=== PATIENT | female | born 2000 | race Caucasian/White ===

== ENCOUNTER 2023-04-24 11:56 | Outpatient (CLI) | payer BC, OTHER, SELFPAY ==
--- NOTE | ~2023-04-24 | US_ITS ---
EXAMINATION: US OB <=14 wk fetus w TV DATE: 04/24/2023 12:37 INDICATION: First trimester with inconclusive viability TECHNIQUE: Real-time pelvic ultrasound utilizing both a transvaginal and transabdominal probe was pe rformed. The interpreting radiologist was not present for the study. COMPARISON: None. FINDINGS: The uterus measures 11.6 x 5.3 x 7.1 cm. There is an intrauterine gestational sac. A yolk sac and fe michael pole are identified. The crown rump length measures 5 mm, which correlates with an estimated gest ational age of 6 weeks and 2 days. heart motion is identified measuring 126 beats per minute (b pm) by M-mode Doppler. The right ovary measures 3.7 x 1.5 x 3.7 cm. The left ovary measures 2.8 x 2.6 x 2.0 cm. Vascular kendy w is identified in both ovaries on color Doppler. There is no free fluid in the pelvis. IMPRESSION: 1. Single living fetus with heart rate of 126 bpm. 2. Gestational age by ultrasound of 6 weeks 2 day(s) +/- 3 day(s) with ultrasound estimated date of delivery (GAYLA) of 12/16/2023. Reviewed, dictated and finalized at location A. IMPRESSION: 1. Single living fetus with heart rate of 126 bpm. 2. Gestational age by ultrasound of 6 weeks 2 day(s) +/- 3 day(s) with ultraso und estimated date of delivery (GAYLA) of 12/16/2023.
== END 2023-04-24 11:57 | disposition home or self-care (01) ==
LOC: ANHIMG 12:00
PROVIDERS: Visit Provider Obstetrics & Gynecology
DX: O36.80X0 Pregnancy with inconclusive fetal viability, not applicable or unspecified (principal)
CPT/HCPCS: 76801; 76817

== ENCOUNTER 2023-05-01 16:44 | Outpatient (CLI) | payer BC, OTHER, SELFPAY ==
[2023-05-01 18:15] LABS: Alanine Aminotransferase 98 U/L (6-35); Albumin Level 4.1 g/dL (3.5-5.1); Alkaline Phosphatase 70 U/L (38-126); Anion Gap 6 mmol/L (8-16); Aspartate Amino Transferase 47 U/L (14-36); Bilirubin,Total 0.4 mg/dL (0.2-1.3); Blood Urea Nitrogen 9 mg/dL (7-17); Calcium 9.8 mg/dL (8.4-10.2); Carbon Dioxide 29 mmol/L (22-30); Chloride 102 mmol/L (98-107); Estimated Glomerular Filt Rate > 60; Glucose 115 mg/dL (65-110); Potassium 3.6 mmol/L (3.4-5.0); Sodium 137 mmol/L (137-145)
[2023-05-01 18:29] LABS: Hemoglobin A1C 7.2 % (<5.7)
== END 2023-05-01 16:45 | disposition home or self-care (01) ==
LOC: ANHLAB 16:46
PROVIDERS: Visit Provider Obstetrics & Gynecology
DX: Z34.90 Encounter for supervision of normal pregnancy, unspecified, unspecified trimester (principal)
CPT/HCPCS: 36415; 80053; 83036; 84443

== ENCOUNTER 2023-05-08 20:15 | Emergency (ER) | payer BC, OTHER, SELFPAY ==
[2023-05-08 20:18] VITALS: BP 132/82; PULSE 108; RESP 20; TEMP 36.5; O2SAT 100
[2023-05-08 20:33] LABS: Basophils Percent Auto 0.2 % (0.2-1.2); Eosinophils Absolute Auto 0.1 K/mm3 (0-0.3); Eosinophils Percent Auto 0.5 % (0-4.4); Hematocrit 36.3 % (37.0-47.0); Hemoglobin 11.6 g/dL (12.0-15.0); Immature Granulocyte Absolute 0.06 K/mm3 (0.00-0.031); Immature Granulocyte Percent A 0.5 % (0-0.5); Lymphocytes Absolute Auto 2.92 K/mm3 (0.9-3.2); Lymphocytes Percent Auto 22.2 % (18.3-44.2); Mean Corpuscular Hemoglobin 26.9 pg (26-34); Monocytes Absolute Auto 0.6 K/mm3 (0.1-0.6); Monocytes Percent Auto 4.5 % (2.6-8.5); Neutrophils Absolute Auto 9.5 K/mm3 (1.3-6.7); Neutrophils Percent Auto 72.1 % (45.5-73.1); Platelet Count Result 285 k/mm3 (150-375); Red Blood Count 4.32 M/mm3 (4.2-5.4); Red Cell Distribution Width 12.8 % (11.5-14.5); White Blood Count 13.2 K/mm3 (4.5-10.0)
--- NOTE | 2023-05-08 23:07 | PC.NURSE ---
pt. called back to be taken to a room. RN stopped computer system technician from taking patient back due to an additional patient having a near syncopal episode. pt. asked to return to seat and wait to be called. pt. family member complains to staff we waited two and a half hours RN educated pt. and family member that the other patients status changed and he needs the room first.
--- NOTE | 2023-05-08 23:37 | ED.PREGNANCY ---
HPI - General Chief complaint: Vaginal Bleeding Stated complaint: vaginal bleeding-8 weeks Time Seen by Provider: 05/08/23 23:06 History of Present Illness HPI Narrative: This is a 22-year-old female, -2-0-0, last menstrual period 8 weeks 3 days ago with intrauterine confirmed by ultrasound, who presents to the emergency department with cramps and vaginal bleeding. The patient states for the past 2 days she has noted increased urinary frequency without dysuria and today began having suprapubic abdominal cramps, rated 7/10 associated with vaginal bleeding. She denies fevers, chills, abdominal pain, nausea or vomiting or recent trauma. Related Data Home Medications Medication Instructions Recorded Confirmed metformin 1,000 mg tablet 1,000 mg PO DAILY 05/01/23 05/08/23 Allergies Allergy/AdvReac Type Severity Reaction Status Date / Time Latex, Natural Rubber Allergy Intermediate Swelling Verified 05/01/23 15:39 adhesive tape AdvReac Intermediate Blister Verified 05/01/23 15:39 Review of Systems Review of Systems: CONSTITUTIONAL: Denies fever, chills, or sweats. CARDIOVASCULAR: Denies chest pain, palpitations, or edema. RESPIRATORY: Denies cough or dyspnea. GASTROINTESTINAL: Suprapubic abdominal pain denies nausea, vomiting, or diarrhea. GENITOURINARY: Vaginal bleeding denies dysuria or hematuria. SKIN: Denies rash or itching. MUSCULOSKELETAL: Denies back pain, joint pain, or myalgia. NEUROLOGIC: Denies headache, numbness, dizziness, or weakness. PSYCHIATRIC: Denies anxiety or depression. [facility] Past Medical History Medical History Anxiety History of miscarriage x 2 History of type 2 diabetes mellitus Surgical History Surgical History History of dilation and curettage x 2021 Family History Family History Father Alcoholism Depression Hypertension Mother Alcoholism Depression Grandparent Kidney malignancy Maternal Grandmother Brain cancer Maternal grandmother Thyroid cancer Maternal grandmother Cervical cancer Maternal grandmother Depression Social History Social History Smoking status: Never smoker Alcohol intake: current Substance use: never Lack of Transportation: No Lack of Food: Never True Current Housing: I Have Housing Concerned About Future Housing: No Difficulty Paying Gas/Electric Bills: No Difficulty Paying for Meds: No Currently Unemployed: No Education: High School Diploma/GED Difficulty w/ Childcare or Family Care: No Living arrangements: with family Occupation/Education: occupation Gender identity (if verbalized by the patient): Female Sexual Orientation (if Verbalized by the Patient): Straight or Heterosexual Spiritual care concerns: No Exam Narrative: GENERAL: Well-developed, well-nourished, and in no acute distress. HEAD: Normocephalic, atraumatic. EYES: PERRLA and EOMI. CHEST: Clear to auscultation. No respiratory distress. No wheezes rales or rhonchi HEART: Regular rate and rhythm. No murmur heard. Normal peripheral pulses. ABDOMEN: Soft, palpation in the suprapubic region without rebound or guarding, nondistended, normal active bowel sounds. No CVA tenderness to palpation (exam chaperoned by female RN Harleen): Small amount of bright red blood mixed with mucus noted in the vaginal vault. The cervical os appears closed with a small amount of blood-tinged mucus EXTREMITIES: Normal range of motion. No edema. NEURO: No focal deficits. Alert and oriented x3. Course Course Emergency Course: 23:40 - The patient is Rh negative. Will treat with RhoGAM. Serum beta-hCG 9984, consistent with . White blood cell count elevated to 13.2 with
[2023-05-08] MEDS: RHO(D) IMMUNE GLOBULIN 300 MCG/2 ML SYRINGE IM (23:48)
[2023-05-08 23:59] LABS: Appearance Urine Clear (Clear); Bilirubin Urine Negative (Negative); Blood Urine Negative (Negative); Color Urine Yellow (Yellow); Glucose Urine UA Negative (Negative); Ketones Urine Negative (Negative); Leukocyte Esterase Ur Negative LEU/UL (Negative); Nitrate Urine Negative (Negative); Protein Urine Negative (Negative); Specific Grav Ur 1.004 (1.001-1.035); Urobilinogen Urine 0.2 mg/dL (<2.0)
[2023-05-09 00:02] LABS: Add Urine Microscopic? YES
== END 2023-05-09 00:22 | disposition home or self-care (01) ==
PROVIDERS: Emergency Provider Preventive Medicine Aerospace Medicine
DX: O20.0 Threatened abortion (principal); Z3A.08 8 weeks gestation of pregnancy; O24.911 Unspecified diabetes mellitus in pregnancy, first trimester; Z79.84 Long term (current) use of oral hypoglycemic drugs
CPT/HCPCS: 36415; 81001; 84702; 85025; 85461; 86850; 86900; 86901; 90384; 96372; 99284; J2790

== ENCOUNTER 2023-05-09 12:11 | Outpatient (CLI) | payer BC, OTHER, SELFPAY ==
--- NOTE | ~2023-05-09 | US_ITS ---
EXAMINATION: US OB <=14 wk fetus w TV DATE: 05/09/2023 13:17 INDICATION: Hemorrhage during first trimester TECHNIQUE: Real-time pelvic ultrasound utilizing both a transvaginal and transabdominal probe was pe rformed. The interpreting radiologist was not present for the study. COMPARISON: 04/24/2023 FINDINGS: The uterus measures 13.0 x 7.3 x 6.1 cm. There is an intrauterine gestational sac. A yolk sac and fe michael pole are identified. The crown rump length measures 1.9 cm, which is concordant within 1 day of t he previously estimated gestational age of 8 weeks and 4 days. heart motion is identified measu ring 165 beats per minute (bpm) by M-mode Doppler. 8 x 8 x 8 mm anechoic subchorionic hematoma at the lower uterine segment along the caudal margin of the gestational sac. 4 mm nabothian cyst along the cervix. The right ovary measures 2.8 x 1.1 x 1.1 cm. The left ovary measures 3.2 x 2.1 x 2.4 cm. Vascular kendy w identified on color Doppler in both ovaries. There is no free fluid in the pelvis. IMPRESSION: 1. Single living fetus with heart rate of 165 bpm. 2. [place]-rump length of 1.9 cm which concordant with one day of previously estimated gestational age by ultrasound of 8 weeks 4 day(s) with ultrasound estimated date of delivery (GAYLA) of 12/15/2023. 3. Small subchorionic hematoma. Reviewed, dictated and finalized at location A. IMPRESSION: 1. Single living fetus with heart rate of 165 bpm. 2. [place]-rump length of 1.9 cm which concordant with one day of previously marlene mated gestational age by ultrasound of 8 weeks 4 day(s) with ultrasound estimat ed date of delivery (GAYLA) of 12/15/2023. 3. Small subchorionic hematoma.
== END 2023-05-09 12:12 | disposition home or self-care (01) ==
PROVIDERS: Visit Provider Obstetrics & Gynecology
DX: O20.9 Hemorrhage in early pregnancy, unspecified (principal); Z3A.08 8 weeks gestation of pregnancy
CPT/HCPCS: 76801; 76817

== ENCOUNTER 2023-05-16 16:58 | Outpatient (CLI) | payer BC, OTHER, SELFPAY ==
[2023-05-16 18:33] LABS: Free T4 Free Thyroxine 1.09 ng/mL (0.78-2.19)
[2023-05-16 18:48] LABS: Hepatitis B Surface Antigen Negative (Negative)
[2023-05-16 19:05] LABS: Hepatitis C Virus Antibody Negative (Negative)
== END 2023-05-16 16:59 | disposition home or self-care (01) ==
LOC: ANHLAB 17:00
PROVIDERS: Visit Provider Obstetrics & Gynecology
DX: R74.8 Abnormal levels of other serum enzymes (principal); R79.89 Other specified abnormal findings of blood chemistry
CPT/HCPCS: 36415; 84439; 86803; 87340

== ENCOUNTER 2023-06-04 12:41 | Outpatient (CLI) | payer BC, OTHER, SELFPAY ==
[2023-06-04 13:19] LABS: Basophils Percent Auto 0.3 % (0.2-1.2); Eosinophils Absolute Auto 0.1 K/mm3 (0-0.3); Eosinophils Percent Auto 0.6 % (0-4.4); Hematocrit 35.4 % (37.0-47.0); Hemoglobin 11.2 g/dL (12.0-15.0); Immature Granulocyte Absolute 0.04 K/mm3 (0.00-0.031); Immature Granulocyte Percent A 0.4 % (0-0.5); Lymphocytes Absolute Auto 2.16 K/mm3 (0.9-3.2); Lymphocytes Percent Auto 19.5 % (18.3-44.2); Mean Corpuscular HGB Conc 31.6 g/dl (32-36); Mean Corpuscular Hemoglobin 26.7 pg (26-34); Mean Corpuscular Volume 84.3 fl (80-100); Mean Platelet Volume 9.2 fl (7.4-10.4); Monocytes Absolute Auto 0.6 K/mm3 (0.1-0.6); Monocytes Percent Auto 5.7 % (2.6-8.5); Neutrophils Absolute Auto 8.1 K/mm3 (1.3-6.7); Neutrophils Percent Auto 73.5 % (45.5-73.1); Platelet Count Result 283 k/mm3 (150-375); Red Cell Distribution Width 13.4 % (11.5-14.5); White Blood Count 11.1 K/mm3 (4.5-10.0)
[2023-06-04 13:33] LABS: Alanine Aminotransferase 32 U/L (6-35); Albumin Level 3.9 g/dL (3.5-5.1); Alkaline Phosphatase 66 U/L (38-126); Anion Gap 6 mmol/L (8-16); Aspartate Amino Transferase 20 U/L (14-36); Bilirubin,Total 0.3 mg/dL (0.2-1.3); Blood Urea Nitrogen 9 mg/dL (7-17); Carbon Dioxide 24 mmol/L (22-30); Chloride 104 mmol/L (98-107); Estimated Glomerular Filt Rate > 60; Glucose 92 mg/dL (65-110); Potassium 3.8 mmol/L (3.4-5.0); Sodium 134 mmol/L (137-145)
[2023-06-04 13:34] LABS: Hemoglobin A1C 6.4 % (<5.7)
[2023-06-04 14:06] LABS: Vitamin D 25 Hydroxy 40.6 ng/mL
[2023-06-04 14:14] LABS: HIV 1/2 Ab P24 Ag Result Negative (Negative)
[2023-06-04 14:24] LABS: Hepatitis B Surface Antigen Negative (Negative)
[2023-06-04 14:36] LABS: Hepatitis C Virus Antibody Negative (Negative)
[2023-06-04 14:56] LABS: Rapid Plasma Reagin Non-Reactive (NonReactive)
[2023-06-07 14:37] LABS: Varicella IgG Antibody <135.00 Index (>=165.00)
[2023-06-08 02:58] LABS: Hematocrit 36.7 % (35.0-45.0); Hemoglobin 11.6 g/dL (11.7-15.5); MCH 27.6 pg (27.0-33.0); MCV 87.4 fL (80.0-100.0); RDW 13.2 % (11.0-15.0)
== END 2023-06-04 12:42 | disposition home or self-care (01) ==
PROVIDERS: Registered Nurse; Visit Provider Obstetrics & Gynecology
DX: O09.299 Supervision of pregnancy with other poor reproductive or obstetric history, unspecified trimester (principal); O24.011 Pre-existing type 1 diabetes mellitus, in pregnancy, first trimester
CPT/HCPCS: 36415; 80053; 82306; 83021; 83036; 84144; 84443; 84702; 85025; 86592; 86703; 86762; 86787; 86803; 86900; 86901; 87086; 87340; G0432

== ENCOUNTER 2023-07-23 09:33 | Outpatient (RCR) | payer BC, OTHER, SELFPAY ==
[2023-07-23 09:36] VITALS: BMI 36.8
[2023-07-23 13:47] VITALS: BMI 36.8
== END 2023-10-08 12:14 | disposition home or self-care (01) ==
LOC: ANHDMC 09:33
DX: O24.112 Pre-existing type 2 diabetes mellitus, in pregnancy, second trimester (principal); Z3A.00 Weeks of gestation of pregnancy not specified; Z71.3 Dietary counseling and surveillance
CPT/HCPCS: 97802

== ENCOUNTER 2023-07-23 11:01 | Outpatient (CLI) | payer BC, OTHER, SELFPAY ==
--- NOTE | 2023-07-23 11:09 | ECG_ITS ---
Measurements Intervals [place] Rate: 72 P: 28 WI: 144 QRS: 56 QRSD: 98 T: 30 QT: 345 QTc: 378 Interpretive Statements SINUS RHYTHM COMPARED TO ECG 06/02/2019 09:52:55 SINUS RHYTHM NOW PRESENT Electronically Signed On 07-23-2023 16:28:04 CDT by Ya Baez M.D.
== END 2023-07-23 11:02 | disposition home or self-care (01) ==
LOC: ANHCARD 11:02
PROVIDERS: Visit Provider Obstetrics & Gynecology
DX: Z86.39 Personal history of other endocrine, nutritional and metabolic disease (principal)
CPT/HCPCS: 93005

== ENCOUNTER 2023-08-12 08:15 | Outpatient (CLI) | payer BC, OTHER, SELFPAY ==
[2023-08-12 08:42] LABS: Collection Time Urine 24 HOURS
[2023-08-12 11:48] LABS: Total Volume 24 Hour Urine 5950 ml
[2023-08-12 11:51] LABS: Specific Gravity Ur 1.006
[2023-08-12 12:51] LABS: Patient Weight 205 Lbs; Total Protein Urine Random 16 mg/dL
[2023-08-12 13:48] LABS: Total Protein Urine 24 Hr 2 mg/24hr (0-149)
[2023-08-13 08:28] LABS: Estimated Glomerular Filt Rate > 60
[2023-08-13 22:34] LABS: Creatinine Clearance Urine 127.3 ml/min (75-125)
== END 2023-08-12 08:16 | disposition home or self-care (01) ==
LOC: ANHLAB 08:17
PROVIDERS: Visit Provider Registered Nurse
DX: Z86.39 Personal history of other endocrine, nutritional and metabolic disease (principal)
CPT/HCPCS: 36415; 81050; 82565; 82575; 84156

== ENCOUNTER 2023-09-06 18:16 | Emergency (ER) | payer BC, OTHER, SELFPAY ==
[2023-09-06] VITALS (22 sets, daily range): BP systolic 104–131; BP diastolic 53–76; PULSE 88–135; RESP 15–25; TEMP 36.6; O2SAT 96–100
--- NOTE | ~2023-09-06 | CT_ITS ---
EXAMINATION: CTA chest PE protocol DATE: 09/06/2023 21:24 INDICATION: Tachycardia, syncope. . Elevated d-dimer. TECHNIQUE: Computed tomography angiography (CTA) of the chest was performed with 100 mL Omnipaque-350 intravenous contrast timed to evaluate the pulmonary arteries. Coronal maximum intensity projection 3D-reconstructions were created by the technologist. Automated exposure control and iterative reconst ruction technique were employed. Exam dose: 847.71 mGy-cm total exam DLP. COMPARISON: 06/01/2019 portable AP chest FINDINGS: There is diagnostic contrast enhancement of the pulmonary arteries and no evidence of pulmo nary embolism. No thoracic aortic aneurysm or dissection. No hilar or mediastinal mass lesion or lymphadenopathy. Normal heart size. No pericardial or pleural effusion. No pulmonary infiltrate or consolidation or pulmonary mass lesion. Included skeletal structures are unremarkable. IMPRESSION: Negative; no evidence of pulmonary embolism Reviewed, dictated and finalized at Location [facility]. Reviewed, dictated and finalized at location A. AIN MENDER
--- NOTE | 2023-09-06 18:26 | ECG_ITS ---
Measurements Intervals [place] Rate: 96 P: 16 TN: 146 QRS: 32 QRSD: 97 T: 4 QT: 325 QTc: 411 Interpretive Statements SINUS RHYTHM MINIMAL Q WAVES- INFERIOR LEADS NONSPECIFIC T-WAVE ABNORMALITY- ANTEROLAT/INF LEADS BORDERLINE ECG COMPARED TO ECG 07/23/2023 11:15:18 T-WAVE ABNORMALITY NOW PRESENT Electronically Signed On 09-06-2023 19:54:15 SURGICAL PRODUCT SALES CONSULTANT by Christoph Ross D.O.
[2023-09-06 18:39] LABS: Basophils Percent Auto 0.2 % (0.2-1.2); Eosinophils Percent Auto 0.2 % (0-4.4); Hematocrit 32.9 % (37.0-47.0); Hemoglobin 10.1 g/dL (12.0-15.0); Immature Granulocyte Absolute 0.06 K/mm3 (0.00-0.031); Immature Granulocyte Percent A 0.4 % (0-0.5); Lymphocytes Absolute Auto 1.42 K/mm3 (0.9-3.2); Lymphocytes Percent Auto 9.9 % (18.3-44.2); Mean Corpuscular HGB Conc 30.7 g/dl (32-36); Mean Corpuscular Hemoglobin 26.7 pg (26-34); Mean Platelet Volume 8.9 fl (7.4-10.4); Monocytes Absolute Auto 0.7 K/mm3 (0.1-0.6); Neutrophils Percent Auto 84.3 % (45.5-73.1); Platelet Count Result 265 k/mm3 (150-375); Red Blood Count 3.78 M/mm3 (4.2-5.4); Red Cell Distribution Width 14.1 % (11.5-14.5); White Blood Count 14.3 K/mm3 (4.5-10.0)
[2023-09-06 18:49] LABS: Alanine Aminotransferase 31 U/L (6-35); Albumin Level 3.5 g/dL (3.5-5.1); Alkaline Phosphatase 70 U/L (38-126); Anion Gap 11 mmol/L (8-16); Aspartate Amino Transferase 19 U/L (14-36); Bilirubin,Total 0.3 mg/dL (0.2-1.3); Blood Urea Nitrogen 14 mg/dL (7-17); Calcium 8.9 mg/dL (8.4-10.2); Carbon Dioxide 20 mmol/L (22-30); Chloride 107 mmol/L (98-107); Estimated CRCL calculation 131 ml/min; Estimated Glomerular Filt Rate > 60; Glucose 90 mg/dL (65-110); Potassium 3.4 mmol/L (3.4-5.0); Sodium 138 mmol/L (137-145)
--- NOTE | 2023-09-06 19:30 | ED.SYNCOPE ---
HPI - Syncope General Chief Complaint: Syncope Stated Complaint: near syncope Time Seen by Provider: 09/06/23 19:20 Source: patient Mode of arrival: EMS Limitations: no limitations History of Present Illness HPI narrative: This is a 22-year-old female, 25 weeks , that presents to the emergency department for presyncopal episode today. Reports she had been shopping. She started to feel very lightheaded. She had to lie down so she did not pass out completely. She is a diabetic so took her blood sugar. It was in the 60s to 70s. She did eat something. She continued to feel lightheaded, nauseous and have a headache. She called EMS to be evaluated. Her OB is Dr. Walden. She is feeling baby move. No cramping or bleeding. Denies current chest pain or shortness of breath. Related Data Home Medications Medication Instructions Recorded Confirmed acetaminophen 300 mg-codeine 30 mg 1 tablet PO Q6H PRN 08/22/23 09/06/23 tablet azithromycin 250 mg tablet 250 mg PO DAILY 08/22/23 09/06/23 insulin detemir U-100 100 unit/mL 30 unit subcut QHS 08/22/23 09/06/23 (3 mL) subcutaneous pen (Levemir FlexPen) insulin lispro 100 unit/mL 1 sliding scale dose subcut 08/22/23 09/06/23 subcutaneous pen (Admelog SoloStar USEASDIRECTD U-100 Insulin lispro) vitamins no.121-iron 28 tablet PO DAILY 08/22/23 09/06/23 mg-folic acid 800 mcg tablet Allergies Allergy/AdvReac Type Severity Reaction Status Date / Time Latex, Natural Rubber Allergy Intermediate Swelling Verified 09/06/23 19:23 adhesive tape AdvReac Intermediate Blister Verified 09/06/23 19:23 Review of Systems Review of Systems: CONSTITUTIONAL: Denies fever CARDIOVASCULAR: Denies chest pain, or edema. RESPIRATORY: Denies dyspnea. GASTROINTESTINAL: Denies vomiting All systems reviewed & are unremarkable except as noted in HPI and below PMFSH Past Medical History Medical History Anxiety History of miscarriage x 2 History of type 2 diabetes mellitus Surgical History Surgical History History of dilation and curettage x 1 2021 Family History Family History Father Alcoholism Depression Hypertension Mother Alcoholism Depression Grandparent Kidney malignancy Maternal Grandmother Brain cancer Maternal grandmother Thyroid cancer Maternal grandmother Cervical cancer Maternal grandmother Depression Social History Social History Smoking status: Never smoker Alcohol intake: current Substance use: never Lack of Transportation: No Lack of Food: Never True Current Housing: I Have Housing Concerned About Future Housing: No Difficulty Paying Gas/Electric Bills: No Difficulty Paying for Meds: No Currently Unemployed: No Education: High School Diploma/GED Difficulty w/ Childcare or Family Care: No Living arrangements: with family Occupation/Education: occupation Gender identity (if verbalized by the patient): Female Sexual Orientation (if Verbalized by the Patient): Straight or Heterosexual Spiritual care concerns: No Exam Narrative: GENERAL: Well-appearing, well-nourished, and in no acute distress. HEAD: Normocephalic, atraumatic. EYES: PERRLA and EOMI. ENT: Nares clear, no rhinorrhea or epistaxis. Mucous membranes moist. Oropharynx without tonsillar hypertrophy exudate or other lesions. Bilateral TMs pearly braun non-bulging NECK: Supple. No adenopathy or masses. CHEST: Clear to auscultation. No respiratory distress. No wheezes rales or rhonchi HEART: Regular rate and rhythm. No murmur heard. Normal peripheral pulses. ABDOMEN: Gravid, nontender, nondistended, normal active bowel sounds. EXTREMITIES: Normal range of motion. No edema. SKIN: Warm, dry, no r
[2023-09-06] MEDS: SODIUM CHLORIDE 0.9% IV 1,000 ML 999 ML IV CONT (19:42)
[2023-09-06] MEDS: ACETAMINOPHEN 500 MG TABLET 1000 MG PO (19:42)
[2023-09-06 19:43] LABS: Appearance Urine Clear (Clear); Bilirubin Urine Negative (Negative); Blood Urine Negative (Negative); Color Urine Yellow (Yellow); Glucose Urine UA Negative (Negative); Ketones Urine Negative (Negative); Leukocyte Esterase Ur Negative LEU/UL (Negative); Nitrate Urine Negative (Negative); Protein Urine Negative (Negative); Specific Grav Ur 1.018 (1.001-1.035); Urobilinogen Urine 0.2 mg/dL (<2.0); pH Urine 5.5 (5.0-9.0)
[2023-09-06] MEDS: ONDANSETRON INJ 4 MG/2 ML VIAL IV PUSH (19:43)
[2023-09-06 19:46] LABS: Add Urine Microscopic? NO
[2023-09-06 20:34] LABS: Troponin I < 0.012 ng/mL (0.000-0.034)
[2023-09-06 20:34] LABS: Partial Thromboplastin Time 33.9 SECONDS (22.3-36.8); Prothrombin Time 13.7 Seconds (11.1-14.7)
[2023-09-06 20:44] LABS: D Dimer 1.51 ug/mL (<0.48)
--- NOTE | 2023-09-06 21:12 | PC.NURSE ---
Patient in ct at this time.
== END 2023-09-06 23:03 | disposition home or self-care (01) ==
PROVIDERS: Emergency Medicine; Emergency Provider Physician Assistant; PCP Obstetrics & Gynecology
DX: O26.892 Other specified pregnancy related conditions, second trimester (principal); R55 Syncope and collapse; O24.112 Pre-existing type 2 diabetes mellitus, in pregnancy, second trimester; Z3A.25 25 weeks gestation of pregnancy; Z79.4 Long term (current) use of insulin; R94.31 Abnormal electrocardiogram [ECG] [EKG]
CPT/HCPCS: 36415; 71275; 80053; 81003; 84484; 85025; 85380; 85610; 85730; 93005; 96361; 96374; 99284; 99285; A9270; J2405; J7030; Q9967

== ENCOUNTER 2023-09-22 03:41 | Observation (INO) | payer BC, OTHER, SELFPAY ==
[2023-09-22 03:55] VITALS: BP 129/69; PULSE 106
[2023-09-22 04:00] VITALS: BP 122/67; PULSE 104
[2023-09-22 04:15] VITALS: BP 123/60; PULSE 99
[2023-09-22 04:32] VITALS: BMI 39.5
--- NOTE | 2023-09-22 04:32 | OBADM ---
This patient, Zeenat Ovalle, admitted to the OB room [facility] Post [facility] for observation. Patient/family oriented to hospital policies and general routines including ID bracelet, bed and alarms, visiting hours, pain management, procedures, bathroom and other care routines, personal items, smoking policy, room service/diet, and visiting hours. Patient/Family are encouraged to report perceived risks to care and to ask questions if they do not understand what they are told or what they should do.
--- NOTE | 2023-09-23 08:34 | PM.OBTRLD ---
OB - Triage/Final Diagnosis Visit Information Date of evaluation: 09/22/23 Reason for evaluation: other (elevated blood pressure) Comments/Additional reasons for admission: I have assessed the risk for this patient, Zeenat Ovalle, and determined that she would benefit from observation care.
== END 2023-09-22 04:43 | disposition home or self-care (01) ==
PROVIDERS: Admitting Provider Student in an Organized Health Care Education/Training Program; Visit Provider Student in an Organized Health Care Education/Training Program
DX: O16.3 Unspecified maternal hypertension, third trimester (principal); Z3A.28 28 weeks gestation of pregnancy
CPT/HCPCS: G0378; G0379

== ENCOUNTER 2023-09-25 09:55 | Outpatient (RCR) | payer BC, OTHER, SELFPAY ==
[2023-09-25 10:49] LABS: Hematocrit 31.5 % (37.0-47.0); Hemoglobin 9.7 g/dL (12.0-15.0); Mean Corpuscular HGB Conc 30.8 g/dl (32-36); Mean Corpuscular Hemoglobin 26.7 pg (26-34); Mean Corpuscular Volume 86.8 fl (80-100); Mean Platelet Volume 8.9 fl (7.4-10.4); Platelet Count Result 258 k/mm3 (150-375); Red Blood Count 3.63 M/mm3 (4.2-5.4); Red Cell Distribution Width 14.6 % (11.5-14.5); White Blood Count 11.6 K/mm3 (4.5-10.0)
[2023-09-25] MEDS: RHO(D) IMMUNE GLOBULIN 300 MCG/2 ML SYRINGE IM (17:27)
== END 2023-12-24 23:59 | disposition home or self-care (01) ==
LOC: ANHLAB 09:55
PROVIDERS: Visit Provider Obstetrics & Gynecology
DX: Z29.13 Encounter for prophylactic Rho(D) immune globulin (principal); O36.0190 Maternal care for anti-D [Rh] antibodies, unspecified trimester, not applicable or unspecified; Z3A.00 Weeks of gestation of pregnancy not specified
CPT/HCPCS: 36415; 85027; 85461; 86850; 86900; 86901; 90384; 96372; J2790

== ENCOUNTER 2023-11-14 14:23 | Outpatient (CLI) | payer OTHER, BC, SELFPAY ==
[2023-11-14 15:04] LABS: Hematocrit 34.7 % (37.0-47.0); Hemoglobin 10.4 g/dL (12.0-15.0); Mean Corpuscular Hemoglobin 25.9 pg (26-34); Mean Corpuscular Volume 86.3 fl (80-100); Mean Platelet Volume 9.4 fl (7.4-10.4); Platelet Count Result 279 k/mm3 (150-375); Red Blood Count 4.02 M/mm3 (4.2-5.4); Red Cell Distribution Width 15.5 % (11.5-14.5); White Blood Count 9.8 K/mm3 (4.5-10.0)
[2023-11-14 15:41] LABS: D Dimer 2.18 ug/mL (<0.48)
[2023-11-14 15:46] LABS: Rapid Plasma Reagin Non-Reactive (NonReactive)
[2023-11-14 18:39] LABS: HIV 1/2 Ab P24 Ag Result Negative (Negative)
== END 2023-11-14 14:24 | disposition home or self-care (01) ==
PROVIDERS: Visit Provider Registered Nurse
DX: Z34.90 Encounter for supervision of normal pregnancy, unspecified, unspecified trimester (principal); D64.9 Anemia, unspecified; E11.9 Type 2 diabetes mellitus without complications
CPT/HCPCS: 36415; 85027; 85380; 86592; 86703; G0432

== ENCOUNTER 2023-11-20 14:51 | Outpatient (CLI) | payer OTHER, BC, SELFPAY ==
[2023-11-20 15:43] LABS: Basophils Percent Auto 0.3 % (0.2-1.2); Eosinophils Absolute Auto 0.1 K/mm3 (0-0.3); Eosinophils Percent Auto 0.5 % (0-4.4); Hematocrit 31.2 % (37.0-47.0); Hemoglobin 9.6 g/dL (12.0-15.0); Immature Granulocyte Absolute 0.06 K/mm3 (0.00-0.031); Immature Granulocyte Percent A 0.6 % (0-0.5); Lymphocytes Absolute Auto 1.41 K/mm3 (0.9-3.2); Lymphocytes Percent Auto 13.7 % (18.3-44.2); Mean Corpuscular HGB Conc 30.8 g/dl (32-36); Mean Corpuscular Hemoglobin 26.1 pg (26-34); Mean Corpuscular Volume 84.8 fl (80-100); Mean Platelet Volume 9.3 fl (7.4-10.4); Monocytes Absolute Auto 0.7 K/mm3 (0.1-0.6); Neutrophils Percent Auto 77.9 % (45.5-73.1); Platelet Count Result 265 k/mm3 (150-375); Red Blood Count 3.68 M/mm3 (4.2-5.4); Red Cell Distribution Width 15.1 % (11.5-14.5); White Blood Count 10.3 K/mm3 (4.5-10.0)
[2023-11-20 15:47] LABS: Appearance Urine Clear (Clear); Bacteria Urine None Seen /hpf; Bilirubin Urine Negative (Negative); Blood Urine 1+ (Negative); Color Urine Yellow (Yellow); Glucose Urine UA Negative (Negative); Ketones Urine Negative (Negative); Leukocyte Esterase Ur Negative LEU/UL (Negative); Nitrate Urine Negative (Negative); Non Pathogenic Casts 0-2; Protein Urine Negative (Negative); RBC Urine 0-2 /hpf (0-2); Specific Grav Ur 1.011 (1.001-1.035); Squamous Epithelial Cell Urine Few /hpf (Few); Urobilinogen Urine 0.2 mg/dL (<2.0); WBC Urine 0-5 /hpf
[2023-11-20 15:49] LABS: Add Urine Microscopic? YES
[2023-11-20 15:54] LABS: Alanine Aminotransferase 27 U/L (6-35); Albumin Level 2.9 g/dL (3.5-5.1); Alkaline Phosphatase 143 U/L (38-126); Anion Gap 4 mmol/L (8-16); Aspartate Amino Transferase 20 U/L (14-36); Bilirubin,Total 0.3 mg/dL (0.2-1.3); Blood Urea Nitrogen 12 mg/dL (7-17); Calcium 8.3 mg/dL (8.4-10.2); Carbon Dioxide 22 mmol/L (22-30); Chloride 109 mmol/L (98-107); Estimated Glomerular Filt Rate > 60; Glucose 90 mg/dL (65-110); Potassium 3.7 mmol/L (3.4-5.0); Sodium 135 mmol/L (137-145)
[2023-11-20 15:56] VITALS: BP 125/71; PULSE 80; BMI 43.5
[2023-11-20 16:00] VITALS: BP 122/73; PULSE 84
[2023-11-20 16:04] LABS: Creatinine Urine 53.4 mg/dL; Total Protein Urine Random 10 mg/dL; Ur Ttl Prot Creatinine Ratio 0.19 mg/mg (0-0.20)
[2023-11-20 16:09] VITALS: BP 122/73; PULSE 84
[2023-11-20 16:15] VITALS: BP 127/74; PULSE 71
--- NOTE | 2023-11-20 16:24 | PC.NURSE ---
Dr. Walden informed of BP's, reactive NST, and lab results. Pt to complete 24 hr urine at home and increase FESO4 to twice per day.
[2023-11-20 16:30] VITALS: BP 129/72; PULSE 75
== END 2023-11-20 16:36 | disposition home or self-care (01) ==
LOC: ANHOBOP 15:02 → ANHOBPP 15:03
PROVIDERS: Visit Provider Obstetrics & Gynecology
DX: O13.9 Gestational [pregnancy-induced] hypertension without significant proteinuria, unspecified trimester (principal); Z3A.00 Weeks of gestation of pregnancy not specified
CPT/HCPCS: 36415; 59025; 80053; 81001; 82570; 84156; 84550; 85025; 99199

== ENCOUNTER 2023-12-03 09:38 | Outpatient (RCR) | payer OTHER, BC, SELFPAY ==
[2023-09-19 18:23] VITALS: BP 120/66; PULSE 102
[2023-11-30 17:43] VITALS: BP 115/77; PULSE 80
--- NOTE | ~2023-12-03 | US_ITS ---
EXAMINATION: US OB BPP wo non-stress DATE: 12/03/2023 11:04 INDICATION: Decreased movement during third trimester TECHNIQUE: Real-time pelvic ultrasound was performed. The interpreting radiologist was not present fo r the study. COMPARISON: None. FINDINGS: There is a single living fetus in vertex presentation. The placenta is anterior/fundal. heart r ate is 133 beats per minute (bpm). Biophysical profile performed by the technologist: breathing (30 sec sustained breathing in 30 minutes): 2 out of 2 movement (3 gross body movements in 30 minutes): 2 out of 2 tone (one episode of efvcdhr-csrdjxqpi-rmobryx limb movement): 2 out of 2 Amniotic fluid pocket (2 cm): 2 out of 2 Total score: 8 out of 8 IMPRESSION: 1. Single living fetus in vertex presentation. 2. Biophysical profile 8 out of 8. Reviewed, dictated and finalized at location L. [employer] GO ROUND ATTENDANT
[2023-12-03 10:30] VITALS: BP 117/75; PULSE 79
== END 2023-12-18 23:59 | disposition home or self-care (01) ==
LOC: ANHOBOP 09:38
PROVIDERS: Visit Provider Obstetrics & Gynecology
DX: O36.8120 Decreased fetal movements, second trimester, not applicable or unspecified (principal); Z3A.27 27 weeks gestation of pregnancy; O36.8130 Decreased fetal movements, third trimester, not applicable or unspecified; Z3A.37 37 weeks gestation of pregnancy; Z3A.38 38 weeks gestation of pregnancy
CPT/HCPCS: 59025; 76819

== ENCOUNTER 2023-12-05 11:21 | Outpatient (NON) | payer OTHER, BC, SELFPAY ==
[2023-12-05 11:25] VITALS: BMI 43.7
[2023-12-05 12:34] LABS: Collection Time Urine 24 HOURS
[2023-12-05 12:41] LABS: Creatinine Urine 75.8 mg/dL; Patient Weight 239 Lbs; Total Protein Urine Random 13 mg/dL
[2023-12-05 12:49] LABS: Total Protein Urine 24 Hr 273 mg/24hr (28-141); Total Volume 24 Hour Urine 2100 ml
[2023-12-06 12:27] LABS: Creatinine Clearance Urine 116.3 ml/min (75-125); Serum Creat 0.8
== END 2023-12-05 11:22 | disposition home or self-care (01) ==
LOC: ANHOBOP 11:22
PROVIDERS: Visit Provider Obstetrics & Gynecology
DX: O13.9 Gestational [pregnancy-induced] hypertension without significant proteinuria, unspecified trimester (principal)
CPT/HCPCS: 81050; 82575; 84156

== ENCOUNTER 2023-12-06 11:30 | Outpatient (CLI) | payer OTHER, BC, SELFPAY ==
[2023-12-06 12:18] LABS: Alanine Aminotransferase 19 U/L (6-35); Alkaline Phosphatase 160 U/L (38-126); Anion Gap 2 mmol/L (8-16); Aspartate Amino Transferase 20 U/L (14-36); Bilirubin,Total 0.4 mg/dL (0.2-1.3); Blood Urea Nitrogen 11 mg/dL (7-17); Calcium 8.6 mg/dL (8.4-10.2); Carbon Dioxide 23 mmol/L (22-30); Chloride 108 mmol/L (98-107); Estimated Glomerular Filt Rate > 60; Glucose 160 mg/dL (65-110); Sodium 133 mmol/L (137-145)
== END 2023-12-06 12:00 | disposition home or self-care (01) ==
LOC: ANHOBOP 11:35 → ANHOBPP 11:36
PROVIDERS: Visit Provider Obstetrics & Gynecology
DX: O13.9 Gestational [pregnancy-induced] hypertension without significant proteinuria, unspecified trimester (principal); Z3A.00 Weeks of gestation of pregnancy not specified
CPT/HCPCS: 36415; 80053; 99199

== ENCOUNTER 2023-12-08 18:47 | Inpatient (IN) | payer OTHER, BC, SELFPAY ==
[2023-12-08] VITALS (17 sets, daily range): BP systolic 111–135; BP diastolic 59–87; PULSE 77–109; TEMP 36.9–37.2; BMI 44.3
--- NOTE | 2023-12-08 18:47 | LDADM ---
This patient, Zeenat Ovalle, was admitted to Labor/Delivery/Recovery 104 on 12/08/23 at 18:47. Plans for labor, pain management and were discussed with patient. Patient/family oriented to hospital policies and general routines including ID bracelet, bed and alarms, visiting hours, pain management, procedures, bathroom and other care routines, personal items, smoking policy, room service/diet and guest tray routines, security routines, and visiting hours. Patient/Family are encouraged to report perceived risks to care and to ask questions if they do not understand what they are told or what they should do. See OBIX for further documentation.
[2023-12-08 19:28] LABS: Basophils Percent Auto 0.2 % (0.2-1.2); Eosinophils Absolute Auto 0.1 K/mm3 (0-0.3); Eosinophils Percent Auto 0.6 % (0-4.4); Hematocrit 32.3 % (37.0-47.0); Hemoglobin 9.9 g/dL (12.0-15.0); Immature Granulocyte Absolute 0.05 K/mm3 (0.00-0.031); Immature Granulocyte Percent A 0.5 % (0-0.5); Lymphocytes Absolute Auto 1.54 K/mm3 (0.9-3.2); Mean Corpuscular HGB Conc 30.7 g/dl (32-36); Mean Corpuscular Hemoglobin 26.1 pg (26-34); Mean Platelet Volume 9.9 fl (7.4-10.4); Monocytes Absolute Auto 0.8 K/mm3 (0.1-0.6); Neutrophils Absolute Auto 8.5 K/mm3 (1.3-6.7); Neutrophils Percent Auto 77.7 % (45.5-73.1); Platelet Count Result 276 k/mm3 (150-375); Red Cell Distribution Width 15.5 % (11.5-14.5)
[2023-12-08 19:41] LABS: Alanine Aminotransferase 19 U/L (6-35); Albumin Level 3.2 g/dL (3.5-5.1); Alkaline Phosphatase 168 U/L (38-126); Anion Gap 4 mmol/L (8-16); Aspartate Amino Transferase 21 U/L (14-36); Bilirubin,Total 0.3 mg/dL (0.2-1.3); Blood Urea Nitrogen 11 mg/dL (7-17); Calcium 8.3 mg/dL (8.4-10.2); Carbon Dioxide 20 mmol/L (22-30); Chloride 110 mmol/L (98-107); Estimated CRCL calculation 98 ml/min; Estimated Glomerular Filt Rate > 60; Glucose 153 mg/dL (65-110); Potassium 3.8 mmol/L (3.4-5.0); Sodium 134 mmol/L (137-145)
[2023-12-08] MEDS: INSULIN HUMAN REGULAR (*BKC) 100 UNITS/ML SUB-Q (20:14)
[2023-12-08] MEDS: DINOPROSTONE 10 MG VAG INSERT VAGINAL (21:09)
--- NOTE | 2023-12-08 21:54 | PM.IMHP ---
H&P: HPI History of Present Illness Date/Time: 12/08/23 21:54 Chief Complaint: Medical induction of labor Narrative: [id number] at 39 weeks admitted for [facility] for gestational diabetes, insulin controlled. PNC also significant for history of depression. She has been seeing a ACTIVATED SLUDGE ATTENDANT psychiatry and stable on Zoloft. She has had presyncopal episodes and has been evaluated by cardiology. She had an isolated elevated blood pressure. No headaches scotomata or RUQ pain. She had an isolated mild polyhydramnios. Review of Systems Review of Systems: All systems reviewed & are unremarkable except as noted in HPI and below Constitutional: Constitutional: Reports no additional constitutional complaints and Denies headache(s) Eyes: Eyes: Denies spots in vision ENT: Reports system reviewed and no additional complaints, except as documented and Denies headache(s) Cardiovascular: Cardiovascular: Denies chest pain and Denies dyspnea Respiratory: Respiratory: Denies dyspnea Gastrointestinal: Gastrointestinal: Reports no additional gastrointestinal complaints Genitourinary: Genitourinary: Reports amenorrhea Musculoskeletal: Musculoskeletal: Reports no additional musculoskeletal complaints Integumentary/Breasts: Skin/Breast: Denies breast mass and Denies rash Neurologic: Denies headache(s) Psychiatric: Psychiatric: Reports no additional psychiatric complaints [facility] Past Medical History Medical History Anxiety Anxiety and depression Gestational diabetes History of miscarriage x 2 History of type 2 diabetes mellitus Morbid obesity Type 2 diabetes mellitus during Surgical History Surgical History History of dilation and curettage x 2021 Family History Family History Father Alcoholism Depression Hypertension Mother Alcoholism Depression Grandparent Kidney malignancy Maternal Grandmother Brain cancer Maternal grandmother Thyroid cancer Maternal grandmother Cervical cancer Maternal grandmother Depression Social History Social History Smoking status: Former smoker Tobacco type: cigarettes Second hand tobacco smoke exposure: No Alcohol intake: current Substance use: never Do You Feel Safe in your Home?: Yes Lack of Transportation: No Lack of Food: Never True Current Housing: I Have Housing Concerned About Future Housing: No Difficulty Paying Gas/Electric Bills: No Difficulty Paying for Meds: No Currently Unemployed: No Education: High School Diploma/GED Difficulty w/ Childcare or Family Care: No Living arrangements: with family Occupation/Education: occupation Gender identity (if verbalized by the patient): Female Sexual Orientation (if Verbalized by the Patient): Straight or Heterosexual Spiritual care concerns: No Meds Home Medications and Allergies Home Medications Medication Instructions Recorded Confirmed Type insulin lispro 100 unit/mL 1 sliding scale dose subcut 08/22/23 12/08/23 History subcutaneous pen (Admelog SoloStar USEASDIRECTD U-100 Insulin lispro) vitamins no.121-iron 28 1 tablet PO DAILY 08/22/23 12/08/23 History mg-folic acid 800 mcg tablet ferrous sulfate 325 mg (65 mg 325 mg PO DAILY 09/25/23 12/08/23 History iron) tablet ondansetron 4 mg disintegrating 4 mg PO Q8H PRN Nausea And Vomiting 10/22/23 12/08/23 History tablet sertraline 50 mg tablet 50 mg PO DAILY 10/22/23 12/08/23 History aspirin 81 mg chewable tablet 81 mg PO DAILY 11/20/23 12/08/23 History insulin glargine 100 unit/mL (3 13 unit subcut 0800 11/20/23 12/08/23 History mL) subcutaneous pen (Lantus Solostar U-100 Insulin) insulin glargine 100 unit/mL (3 13 unit subcut HS 11/20/23 12/08/23 History mL)
[2023-12-08] MEDS: INSULIN GLARGINE (*BKC) 100 UNITS/ML 13 UNITS SUB-Q (21:55)
[2023-12-08 22:02] LABS: Glucose Point of Care 102 mg/dl (65-105)
[2023-12-09] VITALS (202 sets, daily range): BP systolic 69–156; BP diastolic 32–115; PULSE 65–198; RESP 15–20; TEMP 36–36.6; O2SAT 75–100
--- NOTE | 2023-12-09 02:41 | WPDANESEPP ---
Anes - Eval Pre Procedure Procedure: Labor epidural Date/Time: 12/09/23 02:41 Surgeon: Bakari Preop Diagnosis: Abdominal pain with contractions Pre Op Diagnosis: IOL Patient Data Age: 23 Gender: F Height: 1.57 m Weight: 110 kg Last Vital Signs Temp 98.9 F 12/08/23 23:20 Pulse 77 12/09/23 02:31 BP 117/69 12/09/23 02:31 O2 Del Method Room Air 12/08/23 19:13 Allergies Allergy/AdvReac Type Severity Reaction Status Date / Time Latex, Natural Rubber Allergy Intermediate Swelling Verified 12/03/23 08:43 adhesive tape AdvReac Intermediate Blister Verified 12/03/23 08:43 Home Medications Medication Instructions Recorded Confirmed Type insulin lispro 100 unit/mL 1 sliding scale dose subcut 08/22/23 12/08/23 History subcutaneous pen (Admelog SoloStar USEASDIRECTD U-100 Insulin lispro) vitamins no.121-iron 28 1 tablet PO DAILY 08/22/23 12/08/23 History mg-folic acid 800 mcg tablet ferrous sulfate 325 mg (65 mg 325 mg PO DAILY 09/25/23 12/08/23 History iron) tablet ondansetron 4 mg disintegrating 4 mg PO Q8H PRN Nausea And Vomiting 10/22/23 12/08/23 History tablet sertraline 50 mg tablet 50 mg PO DAILY 10/22/23 12/08/23 History aspirin 81 mg chewable tablet 81 mg PO DAILY 11/20/23 12/08/23 History insulin glargine 100 unit/mL (3 13 unit subcut 0800 11/20/23 12/08/23 History mL) subcutaneous pen (Lantus Solostar U-100 Insulin) insulin glargine 100 unit/mL (3 13 unit subcut HS 11/20/23 12/08/23 History mL) subcutaneous pen (Lantus Solostar U-100 Insulin) vitamin B complex 1 tablet PO DAILY 11/20/23 12/08/23 History Laboratory Tests 12/08/23 12/08/23 19:03 21:58 WBC 11.0 H K/mm3 (4.5-10.0) RBC 3.80 L M/mm3 (4.2-5.4) Hgb 9.9 L g/dL (12.0-15.0) Hct 32.3 L % (37.0-47.0) MCV 85.0 fl (80-100) MCH 26.1 pg (26-34) MCHC 30.7 L g/dl (32-36) RDW 15.5 H % (11.5-14.5) Plt Count 276 k/mm3 (150-375) MPV 9.9 fl (7.4-10.4) Immature Gran % (Auto) 0.5 % (0-0.5) Neut % (Auto) 77.7 H % (45.5-73.1) Lymph % (Auto) 14.0 L % (18.3-44.2) [place] % (Auto) 7.0 % (2.6-8.5) Eos % (Auto) 0.6 % (0-4.4) Baso % (Auto) 0.2 % (0.2-1.2) Lymph # (Auto) 1.54 K/mm3 (0.9-3.2) [place] # (Auto) 0.8 H K/mm3 (0.1-0.6) Eos # (Auto) 0.1 K/mm3 (0-0.3) Baso # (Auto) 0.0 K/mm3 (0.0-0.1) Abs Immat Gran (auto) 0.05 H K/mm3 (0.00-0.031) Absolute Neuts (auto) 8.5 H K/mm3 (1.3-6.7) Absolute Nucleated RBC 0.0 K/mm3 (0.0-0.012) Nucleated RBC % 0.0 % (0.0-0.2) Sodium 134 L mmol/L (137-145) Potassium 3.8 mmol/L (3.4-5.0) Chloride 110 H mmol/L (98-107) Carbon Dioxide 20 L mmol/L (22-30) Anion Gap 4 L mmol/L (8-16) BUN 11 mg/dL (7-17) Creatinine 0.90 mg/dL (0.7-1.0) Estim Creat Clear Calc 98 ml/min Estimated GFR > 60 (59 - ) Glucose 153 H mg/dL (65-110) POC Capillary Glucose 102 mg/dl (65-105) Calcium 8.3 L mg/dL (8.4-10.2) Total Bilirubin 0.3 mg/dL (0.2-1.3) AST 21 U/L (14-36) ALT 19 U/L (6-35) Alkaline Phosphatase 168 H U/L (38-126) Total Protein 6.0 L g/dL (6.3-8.2) Albumin 3.2 L g/dL (3.5-5.1) RPR Pending Blood Type O Negative Antibody Screen Positive Antibody Identification Inconclusive Antigen Identification TNP MCKENZIE, IgG Interpret Not Performed MCKENZIE, Poly Interpret Negative MCKENZIE, Complement Interp Not Performed : gestational age HCG: positive Patient hx anesthesia problems: none Family hx anesthesia problems: none Results Review: All pre-operative results and documents have been reviewed as part of the pre-operative evaluation. [facility] Past Medical Histo
[2023-12-09 07:02] LABS: Glucose Point of Care 86 mg/dl (65-105)
[2023-12-09 09:15] LABS: Glucose Point of Care 92 mg/dl (65-105)
[2023-12-09] MEDS: INSULIN GLARGINE (*BKC) 100 UNITS/ML 13 UNITS SUB-Q (09:22)
[2023-12-09] MEDS: INSULIN ASPART (*BKC) 100 UNITS/ML SUB-Q (09:23)
[2023-12-09] MEDS: OXYTOCIN 30 UNITS/NS 500 ML 30 UNITS/500 ML BAG 6 UNITS IV CONT (09:50)
[2023-12-09] MEDS: DEXTROSE 5%/LACTATED RINGERS 1,000 ML 125 ML IV CONT (09:50)
[2023-12-09 11:12] LABS: Glucose Point of Care 183 mg/dl (65-105)
[2023-12-09] MEDS: fentaNYL CITRATE INJ (*CRX) 100 MCG/2 ML VIAL 50 MCG IV PUSH (12:00)
[2023-12-09] MEDS: LACTATED RINGERS 1,000 ML 125 ML IV CONT ×2 (12:00→14:12)
[2023-12-09 12:06] LABS: Glucose Point of Care 168 mg/dl (65-105)
[2023-12-09] MEDS: INSULIN HUMAN REGULAR (*BKC) 100 UNITS in SODIUM CHLORIDE 0.9% IV 99 ML IV CONT (12:47)
[2023-12-09] MEDS: ONDANSETRON INJ 4 MG/2 ML VIAL IV PUSH ×2 (13:11→17:38)
[2023-12-09 14:07] LABS: Glucose Point of Care 133 mg/dl (65-105)
--- NOTE | 2023-12-09 14:14 | PC.NURSE ---
1410: SUMMER Hampton called OB to inform her of patient's recent blood glucose. Order to D/C [id number] and replace it with LR.
[2023-12-09 15:01] LABS: Glucose Point of Care 139 mg/dl (65-105)
[2023-12-09] MEDS: SERTRALINE HCL 50 MG TABLET PO (15:04)
[2023-12-09 15:32] LABS: Rapid Plasma Reagin Non-Reactive (NonReactive)
[2023-12-09 15:59] LABS: Glucose Point of Care 108 mg/dl (65-105)
[2023-12-09] MEDS: SODIUM CHLORIDE 0.9% IV 300 ML 600 ML I-UTERINE (16:19)
[2023-12-09 17:06] LABS: Glucose Point of Care 85 mg/dl (65-105)
[2023-12-09] MEDS: AZITHROMYCIN 500 MG/NS 250 ML 500 MG/250 ML BAG 250 MG IVPB (17:26)
[2023-12-09] MEDS: FAMOTIDINE 20 MG/2 ML VIAL IV PUSH (17:39)
[2023-12-09] MEDS: ceFAZolin 2 GM/D5W 50 ML 2 GM/50 ML BAG IVPB (17:45)
--- NOTE | 2023-12-09 17:47 | PM.OBPNVD ---
OB - PN: Subj Subjective Date/time seen: 12/09/23 1130 FHT 150 Cat 1, AROM thick mec, cervix 2/60/-2. OB - PN: Obj Data Labs 12/08/23 19:03 12/08/23 19:03 Labs: Laboratory Results - last 24 hr 12/08/23 12/08/23 12/09/23 19:03 21:58 06:55 WBC 11.0 H RBC 3.80 L Hgb 9.9 L Hct 32.3 L MCV 85.0 MCH 26.1 MCHC 30.7 L RDW 15.5 H Plt Count 276 MPV 9.9 Immature Gran % (Auto) 0.5 Neut % (Auto) 77.7 H Lymph % (Auto) 14.0 L [place] % (Auto) 7.0 Eos % (Auto) 0.6 Baso % (Auto) 0.2 Lymph # (Auto) 1.54 [place] # (Auto) 0.8 H Eos # (Auto) 0.1 Baso # (Auto) 0.0 Abs Immat Gran (auto) 0.05 H Absolute Neuts (auto) 8.5 H Absolute Nucleated RBC 0.0 Nucleated RBC % 0.0 Sodium 134 L Potassium 3.8 Chloride 110 H Carbon Dioxide 20 L Anion Gap 4 L BUN 11 Creatinine 0.90 Estim Creat Clear Calc 98 Estimated GFR > 60 Glucose 153 H POC Capillary Glucose 102 86 Calcium 8.3 L Total Bilirubin 0.3 AST 21 ALT 19 Alkaline Phosphatase 168 H Total Protein 6.0 L Albumin 3.2 L RPR Non-reactive Blood Type O Negative Antibody Screen Positive Antibody Identification Inconclusive Antigen Identification TNP MCKENZIE, IgG Interpret Not Performed MCKENZIE, Poly Interpret Negative MCKENZIE, Complement Interp Not Performed 12/09/23 12/09/23 12/09/23 09:10 11:01 12:04 WBC RBC Hgb Hct MCV MCH MCHC RDW Plt Count MPV Immature Gran % (Auto) Neut % (Auto) Lymph % (Auto) [place] % (Auto) Eos % (Auto) Baso % (Auto) Lymph # (Auto) [place] # (Auto) Eos # (Auto) Baso # (Auto) Abs Immat Gran (auto) Absolute Neuts (auto) Absolute Nucleated RBC Nucleated RBC % Sodium Potassium Chloride Carbon Dioxide Anion Gap BUN Creatinine Estim Creat Clear Calc Estimated GFR Glucose POC Capillary Glucose 92 183 H 168 H Calcium Total Bilirubin AST ALT Alkaline Phosphatase Total Protein Albumin RPR Blood Type Antibody Screen Antibody Identification Antigen Identification MCKENZIE, IgG Interpret MCKENZIE, Poly Interpret MCKENZIE, Complement Interp 12/09/23 12/09/23 12/09/23 14:02 14:57 15:56 WBC RBC Hgb Hct MCV MCH MCHC RDW Plt Count MPV Immature Gran % (Auto) Neut % (Auto) Lymph % (Auto) [place] % (Auto) Eos % (Auto) Baso % (Auto) Lymph # (Auto) [place] # (Auto) Eos # (Auto) Baso # (Auto) Abs Immat Gran (auto) Absolute Neuts (auto) Absolute Nucleated RBC Nucleated RBC % Sodium Potassium Chloride Carbon Dioxide Anion Gap BUN Creatinine Estim Creat Clear Calc Estimated GFR Glucose POC Capillary Glucose 133 H 139 H 108 H Calcium Total Bilirubin AST ALT Alkaline Phosphatase Total Protein Albumin RPR Blood Type Antibody Screen Antibody Identification Antigen Identification MCKENZIE, IgG Interpret MCKENZIE, Poly Interpret MCKENZIE, Complement Interp 12/09/23 17:02 WBC RBC Hgb Hct MCV MCH MCHC RDW Plt Count MPV Immature Gran % (Auto) Neut % (Auto) Lymph % (Auto) [place] % (Auto) Eos % (Auto) Baso % (Auto) Lymph # (Auto) [place] # (Auto) Eos # (Auto) Baso # (Auto) Abs Immat Gran (auto) Absolute Neuts (auto) Absolute Nucleated RBC Nucleated RBC % Sodium Potassium Chloride Carbon Dioxide Anion Gap BUN Creatinine Estim Creat Clear Calc Estimated GFR Glucose POC Capillary Glucose 85 Calcium Total Bilirubin AST ALT Alkaline Phosphatase Total Protein Albumin RPR Blood Type Antibody Screen Antibody Identification Antigen Identification MCKENZIE, IgG Interpret MCKENZIE, Poly Interpret MCKENZIE, Complement Interp OB - PN A/P Time Spent Wi
--- NOTE | 2023-12-09 17:48 | PM.OBPNLAB ---
Pain Control Date/time seen: 12/09/23 17:48 FHT 155, cat 2, repetitive late decels, pit off, did get amnioinfusion for repetitive mod variables, variables improved but continued to have mild decelerations,cervix unchanged, she was recommended for section, risk of continuing labor discussed,risk benefits of section discussed, she agrees with section.
--- NOTE | 2023-12-09 18:46 | W.PM.OBCSD ---
OB - Delivery Note Procedure Delivery date: 12/09/23 Pre-op diagnosis: Decelerations and Gestational Diabetes Post-op Diagnosis: Same Induction method: Per Cervidil Protocol Delivery augmentation: Rupture of Membranes and Pitocin Delivery monitor: External FHT, External Uterine and Internal Uterine Prior to decision for section, ACOG/SMFM labor guidelines were considered and discussed with the patient and staff. Decision made to proceed with the section.: Yes Procedure Performed: Primary Surgeon: Billy Walden MD Anesthesia type: Epidural Description of Procedure/Findings: Primary low transverse section, thick meconium, female . Specimen: Yes Estimated Blood Loss: 350 Drains: No Packing: No Pathology: Yes (Placenta and cord) Complications: No immediate complications Condition: Stable Disposition: Floor [place] Baby Date of : 12/09/23 Time of : 18:04 Weeks of gestation at delivery: 39 Infant gender: Female presentation: vertex position: Left Occiput Anterior Placenta delivery description: Manual Removal Narrative: She was admitted on evening of 12/08/23 for [facility] for insulin controlled gestational diabetes. She had cervidil placed. Cervidil was removed the morning of 12/09. Pitocin started. She had AROM at 1100 thick meconium. She initally had D5 IVF and then had two elevated BS and insulin drip started. IVF were switched to NS. She had an IUPC placed. She progressed to 5cm. She started having mod variable decelerations. Amnioinfusion started. Pitocin off. Moderate variables improved and then she started having repetitive late decelerations. She was recommended for section for intolerance to labor. [facility] Delivery Billing Delivery Delivery: Delivery Charge
--- NOTE | 2023-12-09 18:52 | W.PM.PROC2 ---
Procedure Note - Detailed Date of Procedure 12/09/23 Pre-op Diagnosis 1. intolerance to labor. 2. Gestational diabetes. Post-op Diagnosis Same Procedure Performed Primary low transverse section. Surgeon Billy Walden MD Anesthesia Epidural Indications Non reassuring tracing. Findings Female infant, thick meconium, normal uterus and fallopian tubes and ovaries. Description of Procedure After informed consent, risks and benefits of the procedure was discussed with the patient. The patient was taken to the operating room where she was placed in the dorsal lithotomy position with leftward tilt. After the prior placed epidural anesthesia was found to be adequate, she was then prepped and draped in the usual sterile fashion. A Pfannenstiel skin incision was made with a scalpel and carried through to the underlying layer of fascia. The fascia was then nicked in the midline, extending bilaterally. The fascia was dissected off the rectus muscles bluntly and sharply, superiorly and inferiorly. The rectus muscles were in the midline, and peritoneum was identified and entered bluntly. The pelvic organs were visualized. The bladder blade was then inserted. The vesicouterine peritoneum was identified and entered sharply with Metzenbaum scissors and extended bilaterally and then the bladder flap was created digitally. The low transverse uterine incision was then made with the scalpel and extended with bilateral index fingers in a crescent-shaped fashion. The head was delivered and the rest of the was delivered. The nose and mouth suctioned. The cord was clamped twice and cut. The was then handed off to the awaiting pediatric staff. The placenta was then delivered manually. The uterine cavity was sponge curetted. The uterus was then exteriorized. The uterine incision was then closed with 0 vicryl in a running locked fashion. A figure of eight of 0 vicryl at the right of incision was used for hemostasis. Hemostasis noted. A second layer of 0 vicryl was used in an locking fashion. The posterior cul de sac was cleared of debris. The uterus was then returned to the abdomen. Bilateral gutters were cleared off all clots and debris. The uterine incision was noted to be hemostatic. Interceed placed on uterine incision and vertically on front of uterus. The muscle bellies were inspected and noted to be hemostatic. The subfascial layer was noted to be hemostatic, and the fascia was closed with 0 Vicryl in a running fashion. The subcutaneous layer was irrigated and then approximated with 3-0 Vicryl. The skin was closed with Ensorb angelika. All instruments, needle, and lap counts were correct x3. The patient was taken to the recovery room in stable condition. Estimated Blood Loss 350 Drains No Packing No Pathology Yes (placenta and cord) Complications No immediate complications Condition Stable Disposition Floor [facility] Billing Surgery - Charge Forward: Surgery Billing
[2023-12-09] MEDS: OXYTOCIN 30 UNITS/NS 500 ML 30 UNITS/500 ML BAG 125 UNITS IV CONT (19:10)
[2023-12-10 03:45] VITALS: BP 117/64; PULSE 90; RESP 20; TEMP 36.5
[2023-12-10] MEDS: KETOROLAC 15 MG/ML VIAL (*BKC) IV PUSH ×3 (04:40→16:40)
[2023-12-10] MEDS: ACETAMINOPHEN 325 MG TABLET 650 MG PO ×4 (04:40→22:28)
[2023-12-10 05:36] LABS: Basophils Percent Auto 0.1 % (0.2-1.2); Eosinophils Percent Auto 0.1 % (0-4.4); Hematocrit 30.8 % (37.0-47.0); Hemoglobin 9.2 g/dL (12.0-15.0); Immature Granulocyte Absolute 0.07 K/mm3 (0.00-0.031); Immature Granulocyte Percent A 0.5 % (0-0.5); Lymphocytes Absolute Auto 1.31 K/mm3 (0.9-3.2); Lymphocytes Percent Auto 8.7 % (18.3-44.2); Mean Corpuscular HGB Conc 29.9 g/dl (32-36); Mean Corpuscular Hemoglobin 26.2 pg (26-34); Mean Corpuscular Volume 87.7 fl (80-100); Mean Platelet Volume 10.3 fl (7.4-10.4); Monocytes Absolute Auto 0.9 K/mm3 (0.1-0.6); Monocytes Percent Auto 5.9 % (2.6-8.5); Neutrophils Absolute Auto 12.8 K/mm3 (1.3-6.7); Neutrophils Percent Auto 84.7 % (45.5-73.1); Platelet Count Result 259 k/mm3 (150-375); Red Blood Count 3.51 M/mm3 (4.2-5.4); Red Cell Distribution Width 15.9 % (11.5-14.5); White Blood Count 15.1 K/mm3 (4.5-10.0)
[2023-12-10 07:01] LABS: Anisocytosis 1+ (NORMAL); Hypochromasia 1+ (NORMAL); Platelet Estimate Adequate (Adequate)
[2023-12-10 07:02] LABS: Burr Cells 1+ (NORMAL); Schistocytes None Seen (NORMAL)
[2023-12-10] MEDS: POLYSACCHARIDE IRON COMPLEX 150 MG CAPSULE PO ×2 (07:30→16:38)
[2023-12-10] MEDS: DOCUSATE SODIUM 100 MG CAPSULE PO ×2 (07:30→16:38)
[2023-12-10] MEDS: MULTIVIT/MIN/PREN/FOL AC/IRON TABLET 1 TAB PO (07:30)
--- NOTE | 2023-12-10 07:43 | WPDANLDPN2 ---
Anes-Prog Note L&D Date/Time: 12/10/23 07:43 Neuraxial method: epidural Epidural/Spinal procedure site: clean & non-tender Neuro status: Neuro function grossly intact. Cardiovascular status: normal Respiratory status: normal Airway patency: baseline Mental status: baseline Post-Op hydration status: normal Vital Signs: Last Vital Signs Temp 97.7 F 12/10/23 03:45 Pulse 90 12/10/23 03:45 Resp 20 12/10/23 03:45 BP 117/64 12/10/23 03:45 Pulse Ox 98 12/09/23 21:05 O2 Del Method Room Air 12/09/23 21:00 Pain score (VAS): 0 I/O: Intake & Output 12/09/23 12/09/23 12/10/23 15:59 23:59 07:59 Intake Total 1500 100 500 Output Total 850 1300 Balance 1500 -750 -800 Post-procedural complaints: none Patient feedback: Patient satisfied with anesthetic care. States took 2 attempts. Second one was wonderful
[2023-12-10 07:44] LABS: Glucose Point of Care 119 mg/dl (65-105)
[2023-12-10 07:55] VITALS: BP 121/69; PULSE 83; RESP 16; TEMP 36.4; O2SAT 99
[2023-12-10 13:11] VITALS: BP 112/63; PULSE 93; RESP 18; TEMP 36.6; O2SAT 99
--- NOTE | 2023-12-10 14:01 | PC.NURSE ---
[id number] Primary section mother is using her Medela personal pump to stimulate her breast for milk production. Mother shared she will not be putting her to breast. Instructions given on cleaning, care, usage, that there should be no pain, pumping schedule for milk production, collection, and storage of human milk. Patient was assessed for correct placement, flange size, to pump for comfort and nipple stretching/stimulation for adequate milk production every 3 hours (8 times in 24 hours) 1-2 times at night. Mother has been using the 24mm flange and it is too large for her breast. We measured mother at 13mm and recommended a smaller better fitting flange size that we do not have available in the hospital. We worked together with a 21mm flange and is was better, however; not the best fit either after 1-2 minutes. Reviewed education, practiced with mother, and she demonstrated understanding of practicing hand expression, nipple rolling/stretching, gentle massage to preserve breast focus and to work on a possible milk supply at 8 times minimal in 24 hours 1-2 times at night. Mother's left breast is much smaller than her right breast, however; she has expressed some colostrum more from the left than the right breast. Mother voiced understanding of the education shared along with mom/baby guide, hand expression hand and the pump measurement, flange fit handout for additional resource information. Reported to the Primary RN.
--- NOTE | 2023-12-10 16:03 | PM.OBPNVD ---
OB - PN: Subj Subjective Date/time seen: 12/10/23 16:03 OB - PN: Obj Data Labs 12/10/23 03:41 12/08/23 19:03 Labs: Laboratory Results - last 24 hr 12/09/23 12/10/23 12/10/23 17:02 03:41 07:27 WBC 15.1 H RBC 3.51 L Hgb 9.2 L Hct 30.8 L MCV 87.7 MCH 26.2 MCHC 29.9 L RDW 15.9 H Plt Count 259 MPV 10.3 Immature Gran % (Auto) 0.5 Neut % (Auto) 84.7 H Lymph % (Auto) 8.7 L [place] % (Auto) 5.9 Eos % (Auto) 0.1 Baso % (Auto) 0.1 L Lymph # (Auto) 1.31 [place] # (Auto) 0.9 H Eos # (Auto) 0.0 Baso # (Auto) 0.0 Abs Immat Gran (auto) 0.07 H Absolute Neuts (auto) 12.8 H Absolute Nucleated RBC 0.0 Nucleated RBC % 0.0 Platelet Estimate Adequate Hypochromasia 1+ Anisocytosis 1+ Joceline Cells 1+ Schistocytes None seen POC Capillary Glucose 85 119 H Blood Type O Negative Antibody Screen TNP Screen Positive H Baby's Blood Type A pos Baby's MCKENZIE Positive KB Hemoglobin Negative Doses of RhIg Required 1 OB - PN A/P Assessment and Plan (1) Delivery by section: Status: Acute Assessment and Plan: POD1. Doing well. Routine post op care. Time Spent With Patient Time: Total time spent is greater than 50% in coordination of care (as documented) at patient's floor/unit and/or counseling patient: Exam Const: General: comfortable and no acute distress Resp: Effort & Inspection: normal respiratory effort GI: Other: incision intact, fundus at umbilicus, firm, nontender Extrem: General: normal to inspection (2+ edema bilat, nontender bilat) Psych: Mental Status: mental status grossly normal Affect: normal affect
--- NOTE | 2023-12-10 17:25 | PC.NURSE ---
1523 Vivian in Care Coordination (CC) called to get an update on what this pt needs to be seen for. Info given. CC will do a visit in the AM on 12/11/2023.
[2023-12-10 18:30] VITALS: BP 116/80; PULSE 95; RESP 20; TEMP 36.3
[2023-12-10] MEDS: RHO(D) IMMUNE GLOBULIN 300 MCG/2 ML SYRINGE IM (18:30)
[2023-12-10 19:12] LABS: Glucose Point of Care 162 mg/dl (65-105)
--- NOTE | 2023-12-10 19:15 | PC.NURSE ---
About [address] Walden about Fasting Blood Sugar results. She stated to also do 1hr PP dinner and another Fasting in the AM 12/11/2023. And no more insulin orders.
[2023-12-10] MEDS: IBUPROFEN 600 MG TABLET PO (22:28)
[2023-12-10] MEDS: SERTRALINE HCL 50 MG TABLET PO (22:28)
[2023-12-11] MEDS: ACETAMINOPHEN 325 MG TABLET 650 MG PO ×4 (04:15→22:46)
[2023-12-11] MEDS: IBUPROFEN 600 MG TABLET PO ×4 (04:15→22:46)
[2023-12-11 07:55] VITALS: BP 125/79; PULSE 94; RESP 16; TEMP 36.6; O2SAT 99
--- NOTE | 2023-12-11 08:03 | PM.OBPNVD ---
OB - PN: Subj Subjective Date/time seen: 12/11/23 08:03 Patient comments: pain well controlled, tolerating diet and flatus present baby status: bottle feeding well Narrative: She is ambulating, no leg pain. OB - PN: Obj Data Labs 12/10/23 03:41 12/08/23 19:03 Labs: Laboratory Results - last 24 hr 12/10/23 12/10/23 03:41 19:09 POC Capillary Glucose 162 H Blood Type O Negative Antibody Screen TNP Screen Positive H Baby's Blood Type A pos Baby's MCKENZIE Positive KB Hemoglobin Negative Doses of RhIg Required 1 OB - PN A/P Assessment and Plan (1) Delivery by section: Status: Acute Assessment and Plan: POD2. Doing well. Continue routine post op care. Time Spent With Patient Time: Total time spent is greater than 50% in coordination of care (as documented) at patient's floor/unit and/or counseling patient: Exam Const: General: comfortable Resp: Effort & Inspection: normal respiratory effort GI: Inspection: normal to inspection Other: fundus at umbilicus appropriate tenderness, incision intact no erythema or drainage or induration Extrem: General: normal to inspection (2+ edema bilat LE, no calf tenderness or erythema)
[2023-12-11 08:04] LABS: Glucose Point of Care 101 mg/dl (65-105)
[2023-12-11] MEDS: DOCUSATE SODIUM 100 MG CAPSULE PO ×2 (08:41→16:35)
[2023-12-11] MEDS: MULTIVIT/MIN/PREN/FOL AC/IRON TABLET 1 TAB PO (08:41)
[2023-12-11] MEDS: POLYSACCHARIDE IRON COMPLEX 150 MG CAPSULE PO (08:41)
--- NOTE | 2023-12-11 15:10 | PCCCNOTE ---
Met with pt. and FRANSISCA Gale today. This is their first child. They have all necessary equipment at home including a crib, car seat, clothing etc. Pt. has a breast pump at bedside that she has attempted to use however at this time she will likely have to formula feed at discharge until she gets the right supplies. Pt. states she has a cambering machine operator through [facility] that she is looking to establish with but is also interested in a cambering machine operator list here, RN aware. Pt. aware there are recommendations for her to follow up with her PMD and her behavioral health SEARCH MANAGER at [facility]. Pt. reports she seeks services through [facility] for her depression medication, normally on sertraline. She is aware that there are recommendations for her to follow up and continue that medication. Pt. was provided resources and plans to use [place] services. Donation basket was offered and provided to pt.
[2023-12-11 19:30] VITALS: BP 111/72; PULSE 76; RESP 16; TEMP 36.4
[2023-12-11] MEDS: SERTRALINE HCL 50 MG TABLET PO (22:46)
[2023-12-12] MEDS: IBUPROFEN 600 MG TABLET PO ×2 (05:00→11:22)
[2023-12-12] MEDS: ACETAMINOPHEN 325 MG TABLET 650 MG PO ×2 (05:00→11:22)
[2023-12-12 08:05] VITALS: BP 136/81; PULSE 78; RESP 18; TEMP 37.1; O2SAT 100
[2023-12-12 08:08] LABS: Glucose Point of Care 104 mg/dl (65-105)
[2023-12-12] MEDS: MULTIVIT/MIN/PREN/FOL AC/IRON TABLET 1 TAB PO (08:28)
[2023-12-12] MEDS: DOCUSATE SODIUM 100 MG CAPSULE PO (08:28)
[2023-12-12] MEDS: HYDROcodone/acetaminophen (*CRX) 5-325 MG TABLET 1 TAB PO (08:28)
[2023-12-12] MEDS: SIMETHICONE 80 MG TAB.CHEW PO ×2 (08:29→11:23)
--- NOTE | 2023-12-12 11:36 | PC.NURSE ---
Patient viewed the discharge video Mother & Baby Care, The First Two Weeks . Patient was given the opportunity and encouraged to ask questions. Patient verbalized understanding of information shared and has been given the mother/baby guide for home reference.
--- NOTE | 2023-12-12 12:37 | PM.OBDSVD ---
DS: Admitting Diagnosis Discharge Date 12/12/2023 Admitting Diagnosis 1. Medical induction of labor 2. insulin-requiring gestational diabetes DS: Discharge Diagnosis Discharge Diagnosis Plan Failure to progress Intrauterine delivered OB - DS: Summary Hospital Course Hospital Course: Patient was admitted for medical induction of labor with Cervidil. Cervidil was removed after 12 hours Pitocin was started she had assisted rupture of membranes had thick meconium. Labor course significant for intolerance to labor she dilated to 5 cm and was recommended for section. She had an uncomplicated primary section. Postoperatively she did well. She was tolerating regular food she had passage of flatus on postop day 1 had a bowel movement on postop day 3. Baby was doing well. Her blood sugars were not in severe range. She had adequate postop pain. She was ambulating well. Baby was doing well. She was discharged home on postop day 3. OB Procedures : NST and Ultrasound OB Procedures Intrapartum: OB Procedures: : None Peripartum Data Delivery Method: Section Procedures: Procedures Operation Date: 12/09/23 17:40 Actual Procedure Side Surgeon p Section Billy Walden MD complications: none Status at Discharge Functional status at discharge: independent ambulation Time Spent with Patient Time attestation: Total time spent providing and/or coordinating discharge services: Exam Const: General: cooperative Orientation/consciousness: oriented to person, oriented to place and oriented to time HENMT: Face/Nose/Sinus: Normal external nose present Eyes: General: appearance normal, both eyes and all related structures Resp: Effort & Inspection: normal respiratory effort GI: Inspection: normal to inspection Other: Incision intact no drainage Skin: General skin exam: normal color (l) Neuro: General: oriented to person, oriented to place and oriented to time Extrem: General: normal to inspection (2+ edema bilateral nontender bilaterally no calf tenderness bilateral) and no calf tenderness Psych: Appearance: grossly normal Mental Status: mental status grossly normal DS: Data Data Completed and Pending Completed studies during hospitalization: Pending at discharge 12/09/23 18:06 Cytology [PTH] Routine Labs on day of discharge: Labs from last 24 hours 12/12/23 08:03 POC Capillary Glucose 104 Discharge Plan Discharge Attending physician on discharge: Billy Walden Consulting providers: Brennan Winchester Discharging Clinician: Billy Walden Anticipated Discharge Date/Time: 12/12/23 12:34 Patient Disposition: Home, Self-Care Activity: may shower, no straining, no driving and pelvic rest Diet: regular Patient Instructions: Antibiotic Form, (DC) Stand Alone Forms: General Discharge Information Follow-up/Referrals: Billy Walden MD [Physician] - 2 Weeks (Call for appointment) Discharge Medications: New hydrocodone-acetaminophen 5-325 mg Tablet 1 tablet PO Q3H PRN (Reason: Breakthrough Pain Rated 4-6) Qty: 20 0RF No Action sertraline 50 mg tablet 50 mg PO DAILY ondansetron 4 mg tablet,disintegrating 4 mg PO Q8H PRN (Reason: Nausea And Vomiting) PNV [id number] 28 mg iron- 800 mcg tablet 1 tablet PO DAILY insulin lispro [Admelog SoloStar U-100 Insulin] 100 unit/mL insulin pen 1 sliding scale dose subcut USEASDIRECTD Rx Instructions: Takes 4 units before breakfast, 6 units before lunch, and 14 units before dinner ferrous sulfate 325 mg (65 mg iron) tablet 325 mg PO DAILY aspirin 81 mg Tablet,Chewable 81 mg PO DAILY vitamin B complex Tablet 1 tablet PO DAILY insulin glargine [Lantus Solostar U-100 Insulin] 100 unit/mL (3 mL) insulin pen 13 unit SUBCUT 0800
--- NOTE | 2023-12-12 15:39 | PC.NURSE ---
1425 - Purposefully rounded to assess for pumping/expressing breast milk needs. Mother states she has ordered flanges to fit her better and they have not arrived yet. She has not been pumping and appreciated the storage guideline magnet but at this time she is formula feeding.
[2023-12-13 14:43] VITALS: BP 125/76; PULSE 85; RESP 18; TEMP 36.8; O2SAT 99
== END 2023-12-12 15:50 | disposition home or self-care (01) | DRG 788 ==
LOC: ANHLDR 19:55 → ANHOB2 12-09 22:40
PROVIDERS: Admitting Provider Obstetrics & Gynecology; Visit Provider Obstetrics & Gynecology
PROC: 10D00Z1 Extraction of Products of Conception, Low, Open Approach (ICD-10-PCS; CPT 59514; principal; 2023-12-09 17:40)
DX: O24.12 Pre-existing type 2 diabetes mellitus, in childbirth (principal); Z37.0 Single live birth; Z3A.39 39 weeks gestation of pregnancy; O77.0 Labor and delivery complicated by meconium in amniotic fluid; O40.3XX0 Polyhydramnios, third trimester, not applicable or unspecified; O99.344 Other mental disorders complicating childbirth; F32.A Depression, unspecified; F41.9 Anxiety disorder, unspecified; O36.8330 Maternal care for abnormalities of the fetal heart rate or rhythm, third trimester, not applicable or unspecified
CPT/HCPCS: 36415; 80053; 82948; 85025; 85460; 85461; 86592; 86850; 86870; 86880; 86900; 86901; 86902; 86971; 88307; 90384; 99199; A9270; J0456; J0690; J1815; J1885; J2274; J2371; J2405; J2590; J2790; J2795; J3010; J7030; J7120; J7121

== ENCOUNTER 2024-08-26 10:28 | Emergency (ER) | payer OTHER, SELFPAY ==
[2024-08-26 10:42] VITALS: BP 140/87; PULSE 92; RESP 18; TEMP 36.4; O2SAT 100
--- NOTE | 2024-08-26 12:44 | ED_ITS ---
HPI - Female Genitourinary General Chief complaint: Vaginal Bleeding <Salome Sanchez PA-C - Last Filed: 08/26/24 18:26> Stated complaint: miscarriage <Salome Sanchez PA-C - Last Filed: 08/26/24 18:26> Time Seen by Provider: 08/26/24 12:45 <Salome Sanchez PA-C - Last Filed: 08/26/24 18:26> Focused HPI: This is a 23 year old female that presents to the ER for abnormal uterine bleeding. Reports heavy bleeding with clots. Ongoing since last night. Reports abnormal menstrual cycles. She is not currently on control. GENERAL: Well-appearing, well-nourished, and in no acute distress. HEAD: Normocephalic, atraumatic. CHEST: Clear to auscultation. ?No respiratory distress. HEART: Regular rate and rhythm.? NEURO: ?Alert and oriented x3. Patient screened in triage and initial orders placed.? ?Additional care and disposition to be based upon?diagnostic testing and treatment. <Salome Sanchez PA-C - Last Filed: 08/26/24 18:26> History of Present Illness HPI Narrative: 23-year-old female presenting with vaginal bleeding. States that she has very irregular periods and she often will only have 1 per year. She had a baby last November and has not had a menstrual cycle since then. States that she started bleeding yesterday and then today she developed severe cramping. States she had a miscarriage a couple of years ago and that reminded her of that time. Has had some mild lightheadedness as well. No further complaints. <Ashleigh Mcgee MD - Last Filed: 08/26/24 14:41> Related Data Allergies/Adverse reactions: Allergies Allergy/AdvReac Type Severity Reaction Status Date / Time Latex, Natural Rubber Allergy Intermediate Swelling Verified 08/18/24 11:59 adhesive tape AdvReac Intermediate Blister Verified 08/18/24 11:59 <Salome Sanchez PA-C - Last Filed: 08/26/24 18:26> Review of Systems Review of Systems: All systems reviewed & are unremarkable except as noted in HPI and below <Ashleigh Mcgee MD - Last Filed: 08/26/24 14:41> [facility] Past Medical History Medical History: Medical History Anxiety Anxiety and depression Gestational diabetes History of miscarriage x 2 History of type 2 diabetes mellitus Morbid obesity Type 2 diabetes mellitus during <PEGGY Scott Last Filed: 08/26/24 18:26> Surgical History Surgical History: Surgical History Delivery by section History of dilation and curettage x 2021 <PEGGY Scott Last Filed: 08/26/24 18:26> Family History Family History: Family History Father Alcoholism Depression Hypertension Mother Alcoholism Depression Grandparent Kidney malignancy Maternal Grandmother Brain cancer Maternal grandmother Thyroid cancer Maternal grandmother Cervical cancer Maternal grandmother Depression <Salome Sanchez PA-C - Last Filed: 08/26/24 18:26> Social History Social History: Social History Smoking status: Former smoker Tobacco type: cigarettes Second hand tobacco smoke exposure: No Alcohol intake: current Substance use: never Do You Feel Safe in your Home?: Yes Lack of Transportation: No Lack of Food: Never True Current Housing: I Have Housing Concerned About Future Housing: No Difficulty Paying Gas/Electric Bills: No Difficulty Paying for Meds: No Currently Unemployed: No Education: High School Diploma/GED Difficulty w/ Childcare or Family Care: No Living arrangements: with family Occupation/Education: occupation Gender identity (if verbalized by the patient): Female Sexual Orientation (if Verbalized by the Patient): Straight or Heterosexual Spiritual care concerns: No <PEGGY Scott Last Filed: 08/26/24 18:26> Exam Narrative: GENERAL: Well-appearing, In no acute distress, pleasant cooperative HEAD: Normocephalic, atraumatic. EYES: PERRLA and EOMI. ENT: Mucous membranes moist. NECK: Supple. CHEST: No respiratory distress. HEART: Regular rate and rhythm ABDOMEN: Soft, mild diffuse lower abdominal tenderness without guarding or rebound PELVIC: no vaginal lesions, small amount of dark red blood in vaginal vault EXTREMITIES: Normal range of motion. SKIN: Warm, dry, no rash. NEURO: Alert and oriented x3. PSYCH: Normal mood and affect. <Ashleigh Mcgee MD - Last Filed: 08/26/24 14:41> Course Vital Signs Vital signs: Vital Signs Temperature 97.6 F 08/26/24 10:42 Pulse Rate 92 08/26/24 10:42 Respiratory Rate 18 08/26/24 10:42 Blood Pressure 140/87 08/26/24 10:42 Pulse Oximetry 100 08/26/24 10:42 Temperature 97.6 F 08/26/24 10:42 Pulse Rate 80 08/26/24 15:23 Respiratory Rate 14 08/26/24 15:23 Blood Pressure 138/84 08/26/24 15:23 Pulse Oximetry 99 08/26/24 15:23 <Salome Sanchez PA-C - Last Filed: 08/26/24 18:26> Vital Signs Temperature 97.6 F 08/26/24 10:42 Pulse Rate 92 08/26/24 10:42 Respiratory Rate 18 08/26/24 10:42 Blood Pressure 140/87 08/26/24 10:42 Pulse Oximetry 100 08/26/24 10:42 Temperature 97.6 F 08/26/24 10:42 Pulse Rate 80 08/26/24 15:23 Respiratory Rate 14 08/26/24 15:23 Blood Pressure 138/84 08/26/24 15:23 Pulse Oximetry 99 08/26/24 15:23 <Ashleigh Mcgee MD - Last Filed: 08/26/24 14:41> MDM - Female Genitourinary MDM Narrative Medical decision making narrative: 23-year-old female presenting with vaginal bleeding and cramping. Vitals are stable. Exam remarkable for the above. Dark red blood in vaginal vault consistent with menstrual cycle. Patient test is negative. Her hemoglobin is normal. Coags normal. Feel she is safe for outpatient management which she is agreeable with. Will start her on 800 mg ibuprofen t.i.d. for cramping and vaginal bleeding. Advised OB follow-up. Discussed appropriate supportive care and return precautions. Discharged in stable condition. <Ashleigh Mcgee MD - Last Filed: 08/26/24 14:41> Differential Diagnosis Differential diagnosis: Likely urinary tract infection, vaginitis, cystitis and dysmenorrhea <Ashleigh Mcgee MD - Last Filed: 08/26/24 14:41> Medical Records Attestation: I reviewed the patient's medical records. <Ashleigh Mcgee MD - Last Filed: 08/26/24 14:41> Lab Data Attestation: I reviewed the patient's lab results. <Ashleigh Mcgee MD - Last Filed: 08/26/24 14:41> Result diagrams: 08/26/24 12:58 <Salome Sanchez PA-C - Last Filed: 08/26/24 18:26> Labs: Lab Results 08/26/24 08/26/24 Range/Units 12:58 13:31 WBC 10.9 H (4.5-10.0) K/mm3 RBC 5.13 (4.2-5.4) M/mm3 Hgb 14.1 D (12.0-15.0) g/dL Hct 43.5 (37.0-47.0) % MCV 84.8 (80-100) fl MCH 27.5 (26-34) pg MCHC 32.4 (32-36) g/dl RDW 12.7 (11.5-14.5) % Plt Count 291 (150-375) k/mm3 MPV 9.4 (7.4-10.4) fl Immature Gran % (Auto) 0.3 (0-0.5) % Neut % (Auto) 76.1 H (45.5-73.1) % Lymph % (Auto) 16.1 L (18.3-44.2) % [place] % (Auto) 6.6 (2.6-8.5) % Eos % (Auto) 0.5 (0-4.4) % Baso % (Auto) 0.4 (0.2-1.2) % Lymph # (Auto) 1.76 (0.9-3.2) K/mm3 Bill[place] # (Auto) 0.7 H (0.1-0.6) K/mm3 Eos # (Auto) 0.1 (0-0.3) K/mm3 Baso # (Auto) 0.0 (0.0-0.1) K/mm3 Abs Immat Gran (auto) 0.03 (0.00-0.031) K/mm3 Absolute Neuts (auto) 8.3 H (1.3-6.7) K/mm3 Absolute Nucleated RBC 0.000 (0.0-0.012) K/mm3 Nucleated RBC % 0.0 (0.0-0.2) % PT 13.4 (11.1-14.7) Seconds INR 1.0 APTT 30.6 (22.3-36.8) Seconds Beta HCG, Quant < 2.39 mIU/ML POC Urine HCG, Qual Negative (Negative) <Salome Sanchez PA-C - Last Filed: 08/26/24 18:26> Lab Results 08/26/24 08/26/24 Range/Units 12:58 13:31 WBC 10.9 H (4.5-10.0) K/mm3 RBC 5.13 (4.2-5.4) M/mm3 Hgb 14.1 D (12.0-15.0) g/dL Hct 43.5 (37.0-47.0) % MCV 84.8 (80-100) fl MCH 27.5 (26-34) pg MCHC 32.4 (32-36) g/dl RDW 12.7 (11.5-14.5) % Plt Count 291 (150-375) k/mm3 MPV 9.4 (7.4-10.4) fl Immature Gran % (Auto) 0.3 (0-0.5) % Neut % (Auto) 76.1 H (45.5-73.1) % Lymph % (Auto) 16.1 L (18.3-44.2) % Bill[place] % (Auto) 6.6 (2.6-8.5) % Eos % (Auto) 0.5 (0-4.4) % Baso % (Auto) 0.4 (0.2-1.2) % Lymph # (Auto) 1.76 (0.9-3.2) K/mm3 Bill[place] # (Auto) 0.7 H (0.1-0.6) K/mm3 Eos # (Auto) 0.1 (0-0.3) K/mm3 Baso # (Auto) 0.0 (0.0-0.1) K/mm3 Abs Immat Gran (auto) 0.03 (0.00-0.031) K/mm3 Absolute Neuts (auto) 8.3 H (1.3-6.7) K/mm3 Absolute Nucleated RBC 0.000 (0.0-0.012) K/mm3 Nucleated RBC % 0.0 (0.0-0.2) % PT 13.4 (11.1-14.7) Seconds INR 1.0 APTT 30.6 (22.3-36.8) Seconds Beta HCG, Quant < 2.39 mIU/ML POC Urine HCG, Qual Negative (Negative) <Ashleigh Mcgee MD - Last Filed: 08/26/24 14:41> Critical Care Time Critical Care Time Critical Care Time: No <Ashleigh Mcgee MD - Last Filed: 08/26/24 14:41> Discharge Plan Discharge Clinical Impression: Dysfunctional uterine bleeding <Salome Sanchez PA-C - Last Filed: 08/26/24 18:26> Patient Disposition: Home, Self-Care <Salome Sanchez PA-C - Last Filed: 08/26/24 18:26> Condition: Stable <Salome Sanchez PA-C - Last Filed: 08/26/24 18:26> Instructions: Antibiotic Form, Abnormal (Dysfunctional) Uterine Bleeding (ED) <Salome Sanchez PA-C - Last Filed: 08/26/24 18:26> Additional Instructions: Your test is negative and your blood levels today are normal. We have started you on high-dose ibuprofen to be taken 3 times a day for the next several days to help with the bleeding and cramping. Please follow-up with your OB. If your symptoms worsen or other concerning symptoms arise, please return to the ER. <Salome Sanchez PA-C - Last Filed: 08/26/24 18:26> Prescriptions: New ibuprofen 800 mg tablet 800 mg PO TID Qty: 20 0RF No Action valacyclovir [Valtrex] 500 mg tablet 500 mg PO DAILY Qty: 90 0RF Rx Instructions: Take 2 pills every 12 hour for 7 days and then take one pill daily <Salome Sanchez PA-C - Last Filed: 08/26/24 18:26> Follow-up/Referrals: Billy Walden MD [Physician] - <Salome Sanchez PA-C - Last Filed: 08/26/24 18:26> Stand Alone Forms: Work/School Release IP <Salome Sanchez PA-C - Last Filed: 08/26/24 18:26>
[2024-08-26 13:14] LABS: Basophils Percent Auto 0.4 % (0.2-1.2); Eosinophils Absolute Auto 0.1 K/mm3 (0-0.3); Eosinophils Percent Auto 0.5 % (0-4.4); Hematocrit 43.5 % (37.0-47.0); Hemoglobin 14.1 g/dL (12.0-15.0); Immature Granulocyte Absolute 0.03 K/mm3 (0.00-0.031); Immature Granulocyte Percent A 0.3 % (0-0.5); Lymphocytes Absolute Auto 1.76 K/mm3 (0.9-3.2); Lymphocytes Percent Auto 16.1 % (18.3-44.2); Mean Corpuscular HGB Conc 32.4 g/dl (32-36); Mean Corpuscular Hemoglobin 27.5 pg (26-34); Mean Corpuscular Volume 84.8 fl (80-100); Mean Platelet Volume 9.4 fl (7.4-10.4); Monocytes Absolute Auto 0.7 K/mm3 (0.1-0.6); Monocytes Percent Auto 6.6 % (2.6-8.5); Neutrophils Absolute Auto 8.3 K/mm3 (1.3-6.7); Neutrophils Percent Auto 76.1 % (45.5-73.1); Platelet Count Result 291 k/mm3 (150-375); Red Blood Count 5.13 M/mm3 (4.2-5.4); Red Cell Distribution Width 12.7 % (11.5-14.5); White Blood Count 10.9 K/mm3 (4.5-10.0)
[2024-08-26 13:26] LABS: Prothrombin Time 13.4 Seconds (11.1-14.7)
[2024-08-26 13:27] LABS: Partial Thromboplastin Time 30.6 Seconds (22.3-36.8)
[2024-08-26 13:33] LABS: BEDSIDEPREGUCG Negative (Negative)
[2024-08-26 14:18] LABS: Beta HCG Quantitative < 2.39 mIU/ML
[2024-08-26] MEDS: IBUPROFEN 400 MG TABLET 800 MG PO (15:17)
[2024-08-26 15:23] VITALS: BP 138/84; PULSE 80; RESP 14; O2SAT 99
== END 2024-08-26 15:25 | disposition home or self-care (01) ==
PROVIDERS: Physician Assistant; Emergency Provider Emergency Medicine
DX: N93.8 Other specified abnormal uterine and vaginal bleeding (principal); F41.9 Anxiety disorder, unspecified; F32.A Depression, unspecified
CPT/HCPCS: 36415; 81025; 84702; 85025; 85610; 85730; 99284; A9270